=== PATIENT | female | born 1945 | race Caucasian/White ===

== ENCOUNTER → 2016-07-12 | Outpatient (CLI) | payer MEDICARE, OTHER | LOC: GMAL 11:19 | PROVIDERS: ATTEND Family Medicine | DX: R30.0 Dysuria (principal) ==

== ENCOUNTER → 2016-08-16 | Outpatient (CLI) | payer MEDICARE, OTHER | END | disposition home or self-care (01) | LOC: GMAL 16:57 | PROVIDERS: ATTEND Family Medicine | DX: N39.0 Urinary tract infection, site not specified (principal) ==

== ENCOUNTER → 2016-08-19 | Outpatient (CLI) | payer MEDICARE, OTHER ==
--- NOTE | 2016-08-19 09:57 | CT ---
EXAM DESCRIPTION: CT head without contrast. CLINICAL HISTORY: HEADACHE acute onset COMPARISON: None available TECHNIQUE: Multiple axial images of the head without contrast FINDINGS: There is no CT evidence of intracranial hemorrhage, mass effect, or acute cortical infarction. The brain parenchyma and ventricles are normal. There are no abnormal extra-axial fluid collections. Vascular structures are unremarkable. There is no acute calvarial defect. The visualized paranasal sinuses and the mastoids are clear. IMPRESSION: 1. No CT evidence of an acute intracranial abnormality. Electronically signed by: Benito Byrne MD 08/19/2016 9:56 AM NUTRITIONAL CHEMIST
== END | disposition home or self-care (01) ==
LOC: CT 08:54
PROVIDERS: ATTEND Family Medicine
DX: G44.209 Tension-type headache, unspecified, not intractable (principal)

== ENCOUNTER → 2016-08-25 | Outpatient (CLI) | payer MEDICARE, OTHER | END | disposition home or self-care (01) | LOC: GMAL 10:42 | PROVIDERS: ATTEND Family Medicine | DX: E55.9 Vitamin D deficiency, unspecified (principal) ==

== ENCOUNTER → 2016-10-04 | Outpatient (CLI) | payer MEDICARE, OTHER | END | disposition home or self-care (01) | LOC: GMAL 11:41 | PROVIDERS: ATTEND Family Medicine | DX: N39.0 Urinary tract infection, site not specified (principal) ==

== ENCOUNTER 2016-11-03 18:41 | Emergency (ER) | payer MEDICARE, OTHER ==
[2016-11-03] MEDS ORDERED: HYDROmorphone HCL INJ 2 MG/ML VIAL ONE (19:04)
[2016-11-03] MEDS ORDERED: HYDROmorphone HCL INJ 2 MG/ML VIAL IM ONE ×2 (19:06→19:27)
[2016-11-03] MEDS ORDERED: ONDANSETRON ODT 8 MG TAB SL ONE ×2 (19:20→19:26)
[2016-11-03] MEDS ORDERED: ONDANSETRON ODT (ER DISP) 8 MG TAB PO ONE (19:20)
--- NOTE | 2016-11-03 19:20 | ED.PDOC ---
History of Present Illness - General Chief Complaint: Lower Extremity Injury Stated Complaint: Right great toe injury Time Seen by Provider: 11/03/16 19:12 Source: patient, family Exam Limitations: no limitations - History of Present Illness Initial Comments: HER HORSE STEPPED ON HER R GREAT TOE. Occurred: just prior to arrival Method of Injury: direct blow Improving Factors: nothing Worsening Factors: movement Allergies/Adverse Reactions: Allergies Codeine Allergy (Verified 11/29/15 09:50) Penicillins Allergy (Verified 11/29/15 09:50) Sulfa Drugs Allergy (Verified 11/29/15 09:50) Home Medications: Ambulatory Orders ALPRAZolam [Xanax] 0.25 mg PO PRN PRN 11/03/16 Promethazine Tab [Phenergan Tablet] 25 mg PO PRN PRN 11/03/16 Tramadol HCl 50 mg PO AC PRN #20 tab 11/03/16 Review of Systems - Review of Systems Constitutional: States: no symptoms reported EENTM: States: no symptoms reported Respiratory: States: no symptoms reported Cardiology: States: no symptoms reported Gastrointestinal/Abdominal: States: nausea. Denies: vomiting Genitourinary: States: no symptoms reported Musculoskeletal: States: joint pain, joint swelling Skin: States: change in hair/nails Neurological: States: no symptoms reported Endocrine: States: no symptoms reported Hematologic/Lymphatic: States: no symptoms reported All other Systems: Reviewed and Negative Past Medical History (General) - Patient Medical History Hx Seizures: No Hx Stroke: No Hx Dementia: No Hx Asthma: No Hx of COPD: No Hx Cardiac Disorders: No Hx Congestive Heart Failure: No Hx Pacemaker: No Hx Hypertension: Yes Hx Thyroid Disease: No Hx Diabetes: No Hx Gastroesophageal Reflux: No Hx Renal Disease: No Hx Cancer: No Hx of HIV: No Hx Hepatitis C: No Hx MRSA: No Surgical History: Hysterectomy - Vaccination History Hx Tetanus, Diphtheria Vaccination: No Hx Influenza Vaccination: Yes Hx Pneumococcal Vaccination: Yes Immunizations Up to Date: Yes - Social History Hx Tobacco Use: No Hx Alcohol Use: No Hx Substance Use: No Hx Substance Use Treatment: No Hx Depression: No - Activities of Daily Living Hospice Agency (if applicable):: None - Female History Patient is a Female of Child Bearing Age (10 -59 yrs old): No Family Medical History - Family History Mother Living Status: Hx Cardiac Disease: Yes Physical Exam - Physical Exam General Appearance: Alert, Well Hydrated Eyes, Ears, Nose, Throat: PERRL/EOMI, normal ENT inspection Neck: non-tender, full range of motion Cardiovascular/Respiratory: regular rate, rhythm, no M/R/G Gastrointestinal/Abdominal: non-tender, no organomegaly Back: normal inspection, no CVA tenderness Thigh/Hip: normal inspection, non-tender Leg: normal inspection, non-tender Knee: normal inspection, non-tender Ankle: normal inspection, non-tender Foot: bone tenderness, ecchymosis, swelling, other - R GREAT TOE. DRIED BLOOD. NO LAC. THE BLOOD CAME FROM THE CUTICLE OF THE TOENAIL. TOENAIL IS CURRENTLY IN TACT BUT I INFORMED HER IT MAY FALL OFF. Neuro/Tendon: normal sensation, normal motor functions, normal tendon functions Mental Status: alert, oriented x 3 Skin: other - PER FOOT EXAM. Progress - Results/Orders Results/Orders: XRAY NEG FOR FRX. R GREAT TOE CONTUSION. UPDATED TDAP VACCINE. GAVE POST-OP HARD SOLED SHOE. INSTRUCTED MOTRIN 800 MG TID AND RX'D ULTRAM PRN. F/U W/ PCP TO FOLLOW PROGRESS. I INFORMED THE PT HER TOENAIL WILL TURN BLACK AND BLUE AND THE TOENAIL MIGHT FALL OFF. NOTE THAT [employer] WAS DOWN FOR 1 HR DURING HER DISCHARGE, THUS THE DC WAS DONE MANUALLY. Departure - Departure Clinical Impression: Contusion of great toe of right foot, Toe pain, right Disposition: Discharge to Home or Self Care Condition: Fair Departure Forms: ED Discharge - Pt. Copy, Patient Portal Self Enrollment Diet: resume usual diet Activity: walking as tolerated Referrals: Sarmad Shaver III, MD [Primary Care Provider] - 1 Week Prescriptions: Tramadol HCl 50 mg PO AC PRN #20 tab PRN Reason: Pain Home Medications: Ambulatory Orders ALPRAZolam [Xanax] 0.25 mg PO PRN PRN 11/03/16 Promethazine Tab [Phenergan Tablet] 25 mg PO PRN PRN 11/03/16 Tramadol HCl 50 mg PO AC PRN #20 tab 11/03/16
--- NOTE | 2016-11-03 19:21 | RAD ---
EXAM DESCRIPTION: Foot, right 3 Views CLINICAL HISTORY: 71 years Female stepped on by a horse COMPARISON: None. TECHNIQUE: Three views of the right foot. FINDINGS: Bandage material around the great toe which limits evaluation. There were likely nondisplaced fractures through the distal phalanx of the great toe. Repeat image without the bandage material is recommended. No other fractures or areas suspicious for fracture identified. IMPRESSION: [Possible fractures through the distal phalanx of the great toe. Repeat imaging without the bandage material in place is recommended. Electronically signed by: Trae Carrillo MD 11/03/2016 7:21 PM CDT
[2016-11-03] MEDS ORDERED: METOCLOPRAMIDE HCL 5 MG TAB ONE (20:16)
[2016-11-03] MEDS ORDERED: HYDROCOD/APAP 10/325 (ER DISP) # 3 tablets ONE (20:23)
[2016-11-03] MEDS ORDERED: TETANUS,DIPHTHERIA,PERTUSSIS 1 EA SYG IM ONE (20:41)
--- NOTE | 2016-11-03 20:56 | RAD ---
EXAM DESCRIPTION: Toes,Right CLINICAL HISTORY: 71 years, Female, BANDAGE OBSCURED VIEW ON ORIGINAL XRAY. COMPARISON: RIGHT foot radiographs dated earlier today. FINDINGS: Three views of the RIGHT first digit were performed. Localized soft tissue swelling with a rounded focus of soft tissue gas is noted along the dorsal aspect of the RIGHT first digit at the level of the distal phalanx (at the base of the nailbed). A punctate regional radiopaque foreign body is also noted. There is a similar radiopaque foreign body along the plantar surface of the RIGHT first digit at the level of the tip of the distal phalanx. This radiopaque foreign body is superficial. There is a short well-corticated lucency passing through the plantar and dorsal aspects of the RIGHT first distal phalanx but this does not have the appearance of an acute fracture. Bony alignment is maintained. There is some joint space narrowing and bony proliferation at the RIGHT first MTP joint. IMPRESSION: RIGHT first digit soft tissue injury with two punctate radiopaque foreign bodies along the plantar and dorsal aspects of the RIGHT first digit. There is also a small focus of gas consistent with laceration at the base of the nailbed where one of these foreign bodies is located. No RIGHT first digit fracture. Electronically signed by: Nehal Davenport MD 11/03/2016 7:57 PM CDT
[2016-11-03 21:26] VITALS: BP 114/74; TEMP 98.2; O2SAT 95
== END 2016-11-03 21:00 | disposition home or self-care (01) ==
LOC: ER 18:41
DX: S90.111A Contusion of right great toe without damage to nail, initial encounter (principal); I10 Essential (primary) hypertension; Z88.6 Allergy status to analgesic agent; Z88.0 Allergy status to penicillin; Z88.2 Allergy status to sulfonamides; Z79.899 Other long term (current) drug therapy; W55.19XA Other contact with horse, initial encounter; Y92.9 Unspecified place or not applicable
CPT/HCPCS: 73630; 73660; J1170

== ENCOUNTER → 2016-12-12 | Outpatient (CLI) | payer MEDICARE, OTHER | END | disposition home or self-care (01) | LOC: LAB.O 14:12 | PROVIDERS: ATTEND Family Medicine | DX: M79.1 Myalgia (principal); R53.82 Chronic fatigue, unspecified; E34.0 Carcinoid syndrome ==

== ENCOUNTER 2017-01-20 05:46 | Day surgery (SDC) | payer MEDICARE, OTHER ==
[2017-01-20] MEDS ORDERED: LACTATED RINGERS 1,000 ML ONE (06:29)
[2017-01-20] MEDS ORDERED: PROPOFOL 200 MG/20 ML VIAL IV ONE (07:00)
[2017-01-20] MEDS ORDERED: BUPIVACAINE 0.25% W/EPI 50 ML VIAL INJ ONE (08:27)
[2017-01-20] MEDS ORDERED: LIDOCAINE 1% 50 ML VIAL INJ ONE (08:27)
[2017-01-20] MEDS ORDERED: methylPREDNISolone ACETATE 80 MG/ML VIAL ONE (08:27)
[2017-01-20 10:15] VITALS: BP 153/82; TEMP 96.3; O2SAT 99
--- NOTE | 2017-01-23 09:22 | OP ---
DATE OF PROCEDURE: 01/20/17 PREOPERATIVE DIAGNOSIS: 1. Hip pain. POSTOPERATIVE DIAGNOSIS: 1. Hip pain. PROCEDURE: 1. Injection of joint under anesthesia. SURGEON: Natanael Granado MD. ANVIL WORKER: Steve Ramsey CST, SA-C. ANESTHESIA: Conscious sedation. COMPLICATIONS: None. FINDINGS: No acute abnormal findings. INDICATION: The patient has a long history of hip pain that has been of indeterminate etiology. She has had epidurals and other types of injections, but has never had a direct hip joint injection. As such, she has requested to undergo that procedure. After discussing the risks, benefits and alternatives to that, the patient has given informed consent for that. PROCEDURE: The patient was brought to the Operating Room and placed in supine position. Local sedation was administered. The hip was flexed and slightly abducted. The groin was sterilely prepped. Under fluoroscopic imaging, a needle was passed into the joint. Once confirmation of placement into the joint had been performed, the joint was injected with a mixture of lidocaine and Depo-Medrol. The needle was withdrawn. Pressure was held on the injection site. A sterile band-aid was placed. The patient was then taken back to the Day Surgery Unit. POSTOPERATIVE INSTRUCTIONS: The patient will be weight-bearing as tolerated. The patient will followup with us in about ten days. #[id number] [facility]
== END 2017-01-20 09:45 | disposition home or self-care (01) ==
LOC: AMB 05:46
PROVIDERS: ATTEND Orthopaedic Surgery
DX: M25.552 Pain in left hip (principal); M16.12 Unilateral primary osteoarthritis, left hip; I10 Essential (primary) hypertension; F41.9 Anxiety disorder, unspecified; Z88.5 Allergy status to narcotic agent; Z88.0 Allergy status to penicillin; Z88.2 Allergy status to sulfonamides; Z88.8 Allergy status to other drugs, medicaments and biological substances; Z79.82 Long term (current) use of aspirin; Z79.899 Other long term (current) drug therapy
CPT/HCPCS: 01200; 20610; 76000; J1030; J3490; J7120

== ENCOUNTER → 2017-03-14 | Outpatient (CLI) | payer MEDICARE, OTHER | END | disposition home or self-care (01) | LOC: GMAL 10:54 | PROVIDERS: ATTEND Family Medicine | DX: D51.3 Other dietary vitamin B12 deficiency anemia (principal); R53.82 Chronic fatigue, unspecified; E55.9 Vitamin D deficiency, unspecified ==

== ENCOUNTER → 2017-03-29 | Outpatient (CLI) | payer MEDICARE, OTHER | END | disposition home or self-care (01) | LOC: GMAL 16:38 | PROVIDERS: ATTEND Family Medicine | DX: N39.0 Urinary tract infection, site not specified (principal) ==

== ENCOUNTER → 2017-08-17 | Outpatient (CLI) | payer MEDICARE, OTHER | LOC: GMAL 16:49 | PROVIDERS: ATTEND Family Medicine | DX: N39.0 Urinary tract infection, site not specified (principal) ==

== ENCOUNTER → 2017-09-20 | Outpatient (CLI) | payer MEDICARE, OTHER ==
--- NOTE | 2017-09-21 09:04 | US ---
THYROID ULTRASOUND CLINICAL INFORMATION: Nodular goiter TECHNIQUE: A scaling color Doppler imaging COMPARISON: None FINDINGS: Thyromegaly with bilateral enlargement is present with the right lobe measuring 5.2 x 2.2 x 1.9 cm and the left lobe 5.9 x 1.9 x 1.9 cm. The isthmus is 3 mm in thickness. RIGHT: In the mid right thyroid posteriorly there is a hypoechoic wider than tall lobulated solid nodule 1.2 x 0.8 x 0.7 cm. This represents a TR four lesion and one year follow-up examination recommended. A wider than tall hypoechoic 5 x 5 x 3 mm nodule at the junction of the isthmus and right lobe represents a TR four lesion and no further follow-up recommended. LEFT: A dominant heterogeneous solid oval 1.9 x 1.4 x 0.1 cm nodule in the mid thyroid with at least coarse internal calcifications represents a TR four lesion. Fine-needle aspiration of this dominant nodule recommended. Posterior and lateral to this nodule is an echogenic solid wider than tall 1.5 x 1.3 x 1.2 cm nodule. This represents a TR three lesion and one year sonographic follow-up for stability recommended. IMPRESSION: 1. Heterogeneous solid dominant 1.9 cm nodule lower pole of the left thyroid more anteriorly and medially with coarse internal echoes. Fine-needle aspiration of this nodule recommended. 2. Thyromegaly with multiple additional nodules including a 1.2 cm solid nodule in the mid right lobe and a 1.5 cm solid nodule in the lower left lobe laterally and posteriorly. One year sonographic follow-up of these nodules recommended. ACR TI-RADS recommendations: TR5 (>/=7 points) - FNA if >/=1 cm, follow-up if 0.5 - 0.9 cm every year for 5 years TR4 (4-6 points) - FNA if >/=1.5 cm, follow-up if 1 - 1.4 cm in 1, 2, 3 and 5 years TR3 (3 points) - FNA if >/=2.5 cm, follow -up if 1.5 - 2.4 cm in 1, 3 and 5 years TR2 (2 points) and TR1 (0 points) - No FNA or follow-up * ACR TI-RADS recommends that no more than two nodules with the highest ACR TI-RADS total point should be biopsied and no more than four nodules should be followed. Electronically signed by: Montana Capps MD 09/21/2017 9:03 AM CDT
== END | disposition home or self-care (01) ==
LOC: US 14:45
PROVIDERS: ATTEND Internal Medicine
DX: E04.2 Nontoxic multinodular goiter (principal)

== ENCOUNTER → 2018-03-01 | Outpatient (CLI) | payer MEDICARE, OTHER ==
--- NOTE | 2018-03-01 16:06 | MRI ---
Study: MRI Pelvis. Indication: LEFT HIP PAIN Technique: Multiplanar, multi sequence MRI of the pelvis obtained without intravenous contrast. Comparison: None. Findings: Full-thickness tearing at the base of the anterior superior left hip labrum noted. No acute fracture or osteonecrosis. Grade 3 chondral thinning throughout the majority of the left hip joint with subtle areas of grade 4 chondral loss superiorly and posteriorly. No cortical remodeling or subchondral marrow change. Physiologic volume left hip joint fluid. Tiny joint line osteophytes. Mild pubic symphysis osteoarthritis. At least mild right hip osteoarthritis. Colonic diverticulosis. Tendinosis bilateral gluteus minimus/medius tendon insertions with mild bilateral greater trochanter bursal edema. Tendinosis bilateral hamstring tendon origins, left greater than right. No acute pelvic tendon tear identified. 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 No acute fracture or osteonecrosis. Additional findings as above. Electronically signed by: Alejandro Lewis MD 03/01/2018 4:05 PM CDT
== END ==
LOC: MRI 13:00
PROVIDERS: ATTEND Orthopaedic Surgery
DX: M16.12 Unilateral primary osteoarthritis, left hip (principal); M25.552 Pain in left hip

== ENCOUNTER → 2018-03-22 | Outpatient (CLI) | payer MEDICARE, OTHER | LOC: GMAL 16:58 | PROVIDERS: ATTEND Family Medicine | DX: N30.00 Acute cystitis without hematuria (principal) ==

== ENCOUNTER 2018-05-06 16:15 | Emergency (ER) | payer MEDICARE, OTHER ==
[2018-05-06] MEDS ORDERED: MORPHINE SULFATE INJ 10 MG/ML VIAL IV ONE (16:20)
[2018-05-06] MEDS ORDERED: KETOROLAC TROMETHAMINE INJ 30 MG/ML VIAL IM ONE (16:20)
[2018-05-06] MEDS ORDERED: SODIUM CHLORIDE 0.9% 1000ML 1,000 ML IVS ONE (16:26)
[2018-05-06] MEDS ORDERED: PROMETHAZINE HCL INJ 25 MG in SODIUM CHLORIDE 0.9% 50ML 50 ML IVPB ONE (16:36)
[2018-05-06 16:37] VITALS: TEMP 96.8
[2018-05-06] MEDS ORDERED: KETOROLAC TROMETHAMINE INJ 30 MG/ML VIAL IV ONE ×2 (16:37→17:09)
[2018-05-06] MEDS ORDERED: PROMETHAZINE HCL INJ 25 MG/ML VIAL ONE (16:38)
[2018-05-06] MEDS ORDERED: SODIUM CHLORIDE 0.9% 50ML 50 ML ONE (16:38)
--- NOTE | 2018-05-06 16:57 | RAD ---
EXAM DESCRIPTION: KUB, x-ray one view CLINICAL HISTORY: severe acute right flank pain COMPARISON: None. FINDINGS: Single supine view of the abdomen was submitted. There is no evidence of bowel obstruction. There is no acute osseous process visualized. Intervertebral disc space narrowing and osteophytic formation noted at L1-L2 and L2/L3. Multiple calcifications at the right upper quadrant could be related to chondral calcifications. If gallstones are suspected correlation with a sonogram recommended. IMPRESSION: No evidence of bowel obstruction. Multiple calcifications at the right upper quadrant could be related to chondral calcifications. If gallstones are suspected correlation with a sonogram recommended. Electronically signed by: John Chen MD 05/06/2018 4:55 PM PROPERTY ANALYST
[2018-05-06] MEDS ORDERED: TAMSULOSIN 0.4 MG CAP PO ONE (17:10)
[2018-05-06] MEDS ORDERED: traMADol HCL 50 MG TAB PO ONE (17:10)
--- NOTE | 2018-05-06 18:04 | CT ---
EXAM DESCRIPTION: Abdoment/Pelvis w/o Contrast CLINICAL HISTORY: suspected right sided kidney stone COMPARISON: None Available TECHNIQUE: Contiguous axial images of the abdomen and pelvis were obtained followed by reconstruction images. This exam was performed according to our departmental dose-optimization program, which includes automated exposure control, adjustment of the mA and/or kV according to patient size and/or use of iterative reconstruction technique. FINDINGS: The right kidney demonstrates hydronephrosis due to a 2 mm stone at the ureterovesical junction. There are two right renal cysts measuring 1.8 cm and 3 cm. There is an umbilical hernia with fatty component only. There are diverticuli without CT evidence of acute diverticulitis. Linear opacities within the lungs may represent scar versus subsegmental atelectasis. There is a hiatal hernia. The liver is of decreased attenuation compatible with fatty infiltration. The liver, spleen, pancreas and kidneys are otherwise within normal limits. The gallbladder is unremarkable by CT criteria. Adrenal glands are within normal limits. Aorta is of normal caliber and tapering. There is no free fluid in the abdomen or pelvis. There is no bowel obstruction. There is no stranding of the mesenteric fat to suggest an inflammatory response. The appendix is within normal limits. There is no pericecal inflammation. IMPRESSION: Right-sided hydronephrosis due to a 2 mm stone at the ureterovesical junction. Electronically signed by: John Chen MD 05/06/2018 6:03 PM ETYMOLOGY TEACHER
[2018-05-06 18:11] VITALS: BP 124/87; O2SAT 97
--- NOTE | 2018-05-06 18:23 | ED.PDOC ---
History of Present Illness - General Chief Complaint: Abdominal Pain Stated Complaint: R flank pain Time Seen by Provider: 05/06/18 16:16 Source: patient Exam Limitations: no limitations - History of Present Illness Initial Comments: the patient is a 72-year-old female presents secondary to acute onset severe right flank pain. The patient has urinated several times and feels like she needs to urinate more but cannot. Pain is a 10 out of 10. Mild nausea. No vomiting. No diarrhea. No symptoms prior. No history of any kidney stones. Patient cannot remain still. Vital signs within normal limits. Patient is diaphoretic. Timing/Duration: unsure Severity: moderate Improving Factors: nothing Worsening Factors: movement Associated Symptoms: denies symptoms Allergies/Adverse Reactions: Allergies Codeine Allergy (Verified 05/06/18 16:30) Anaphylaxis Penicillins Allergy (Verified 05/06/18 16:30) Other Causes her to pass out Sulfa Drugs Allergy (Verified 05/06/18 16:30) Hives Home Medications: Ambulatory Orders ALPRAZolam [Xanax] 1 mg PO PRN PRN 11/03/16 Promethazine Tab [Phenergan Tablet] 25 mg PO PRN PRN 11/03/16 Tramadol HCl 50 mg PO AC PRN #20 tab 11/03/16 Aspirin [Aspirin Adult Low Dose] 81 mg PO DAILY 01/20/17 Cetirizine HCl [ZyrTEC] 10 mg PO BEDTIME 01/20/17 Methocarbamol [Robaxin] 750 mg PO PRN PRN 01/20/17 Multiple Vitamins W/ Minerals [Multivitamin Adults] 1 tab PO DAILY@07 diphenhydrAMINE HCL [Benadryl] 25 mg PO DAILY@0700 01/20/17 Tamsulosin HCl [Flomax] 0.4 mg PO DAILY #10 cap 05/06/18 Review of Systems - Review of Systems Constitutional: States: no symptoms reported EENTM: States: no symptoms reported Respiratory: States: no symptoms reported Cardiology: States: no symptoms reported Gastrointestinal/Abdominal: States: no symptoms reported Genitourinary: States: see HPI Musculoskeletal: States: back pain Skin: States: no symptoms reported Neurological: States: no symptoms reported, anxiety Endocrine: States: no symptoms reported All other Systems: No Change from Baseline Past Medical History (General) - Patient Medical History Hx Seizures: No Hx Stroke: No Hx Dementia: No Hx Asthma: No Hx of COPD: No Hx Cardiac Disorders: No Hx Congestive Heart Failure: No Hx Pacemaker: No Hx Hypertension: Yes Hx Thyroid Disease: No Hx Diabetes: No Hx Gastroesophageal Reflux: No Hx Renal Disease: No Hx Cancer: No Hx of HIV: No Hx Hepatitis C: No Hx MRSA: No - Vaccination History Hx Tetanus, Diphtheria Vaccination: No Hx Influenza Vaccination: Yes - 2018 Hx Pneumococcal Vaccination: No - Social History Hx Tobacco Use: No Hx Alcohol Use: No Hx Substance Use: No Hx Substance Use Treatment: No Hx Depression: No Family Medical History - Family History Mother Living Status: Hx Cardiac Disease: Yes Physical Exam - Physical Exam General Appearance: Alert, Obvious distress Eye Exam: bilateral normal Ears, Nose, Throat: hearing grossly normal, normal ENT inspection Neck: full range of motion, supple Respiratory: lungs clear, normal breath sounds, no respiratory distress, no accessory muscle use Cardiovascular/Chest: normal peripheral pulses, no edema, tachycardia Peripheral Pulses: radial,right: 2+, radial,left: 2+, dorsalis pedis,right: 2+, dorsalis pedis,left: 2+ Gastrointestinal/Abdominal: non tender, soft Rectal Exam: deferred Back Exam: CVA tenderness (R) Extremity: non-tender, normal inspection, no pedal edema, normal capillary refill Neurologic: state's attorney II-XII nml as tested, alert, normal mood/affect, oriented x 3 Skin Exam: normal color Comments: Vital Signs - 24 hr 05/06/18 05/06/18 05/06/18 16:15 17:21 18:09 Temperature 96.8 F L Pulse Rate [ 108 H 80 77 Left Radial] Respiratory 22 20 18 Rate Blood Pressure 153/100 163/97 124/87 [Left Arm] O2 Sat by Pulse 97 100 97 Oximetry Progress - Progress Progress: 05/06/18 18:23 patient is 72-year-old female presenting to emergency room secondary to what appears to be pain from ureterolithiasis. The patient received a liter of IV fluids as well as some pain medications. She has also received her first dose of Flomax. Pain is significantly improved. She can take Aleve twice daily for the next few days as well as some of her tramadol if needed. She does need to increase her fluid intake. ER warnings were given. - Results/Orders Results/Orders: Laboratory Tests 05/06/18 05/06/18 05/06/18 16:37 16:37 16:37 WBC 10.5 RBC 4.68 Hgb 14.4 Hct 43.3 MCV 92.4 MCH 30.8 MCHC 33.3 RDW 13.0 Plt Count 343 MPV 8.3 Absolute Neuts (auto) 4.30 Absolute Lymphs (auto) 5.00 H Absolute Monos (auto) 0.90 H Absolute Eos (auto) 0.20 Absolute Basos (auto) 0.10 Neutrophils % 40.7 L Lymphocytes % 48.0 Monocytes % 8.6 Eosinophils % 1.9 Basophils % 0.8 D-Dimer, Quantitative 0.26 Sodium Potassium Chloride Carbon Dioxide Anion Gap BUN Creatinine BUN/Creatinine Ratio Random Glucose Serum Osmolality Calcium Total Bilirubin AST ALT Alkaline Phosphatase Creatine Kinase 53 CK-MB (CK-2) 0.8 CK-MB (CK-2) % Not Reportable Troponin I < 0.02 Serum Total Protein Albumin Globulin Albumin/Globulin Ratio Urine Color Urine Appearance Urine pH Ur Specific Mcclellan Urine Protein Urine Glucose (UA) Urine Ketones Urine Blood Urine Nitrite Urine Bilirubin Urine Urobilinogen Ur Leukocyte Esterase Urine RBC Urine WBC Ur Epithelial Cells Urine Bacteria 05/06/18 05/06/18 16:37 17:56 WBC RBC Hgb Hct MCV MCH MCHC RDW Plt Count MPV Absolute Neuts (auto) Absolute Lymphs (auto) Absolute Monos (auto) Absolute Eos (auto) Absolute Basos (auto) Neutrophils % Lymphocytes % Monocytes % Eosinophils % Basophils % D-Dimer, Quantitative Sodium 139 Potassium 3.6 Chloride 105 Carbon Dioxide 25 Anion Gap 12.6 BUN 14 Creatinine 0.74 BUN/Creatinine Ratio 18.9 Random Glucose 148 H Serum Osmolality 280.8 Calcium 9.4 Total Bilirubin 0.3 AST 24 ALT 28 Alkaline Phosphatase 92 Creatine Kinase CK-MB (CK-2) CK-MB (CK-2) % Troponin I Serum Total Protein 7.5 Albumin 4.4 Globulin 3.1 Albumin/Globulin Ratio 1.4 Urine Color Yellow Urine Appearance Clear Urine pH 6.5 Ur Specific Mcclellan 1.020 Urine Protein Negative Urine Glucose (UA) Negative Urine Ketones Negative Urine Blood Trace-intact H Urine Nitrite Negative Urine Bilirubin Negative Urine Urobilinogen 0.2 Ur Leukocyte Esterase Negative Urine RBC 0 Urine WBC 0-1 Ur Epithelial Cells 5-[address] of abdomen and pelvis shows right-sided renal cysts. She also has 2 mm stone at the right ureteropelvic junction with mild hydronephrosis proximally. Departure - Departure Clinical Impression: Kidney stone on right side Disposition: Discharge to Home or Self Care Condition: Fair Departure Forms: ED Discharge - Pt. Copy, Patient Portal Self Enrollment Instructions: Kidney Stones (DC) Diet: regular diet Activity: increase activity as tolerated Referrals: Sarmad Shaver III, MD [Primary Care Provider] - 1-2 Weeks Prescriptions: Tamsulosin HCl [Flomax] 0.4 mg PO DAILY #10 cap Home Medications: Ambulatory Orders ALPRAZolam [Xanax] 1 mg PO PRN PRN 11/03/16 Promethazine Tab [Phenergan Tablet] 25 mg PO PRN PRN 11/03/16 Tramadol HCl 50 mg PO AC PRN #20 tab 11/03/16 Aspirin [Aspirin Adult Low Dose] 81 mg PO DAILY 01/20/17 Cetirizine HCl [ZyrTEC] 10 mg PO BEDTIME 01/20/17 Methocarbamol [Robaxin] 750 mg PO PRN PRN 01/20/17 Multiple Vitamins W/ Minerals [Multivitamin Adults] 1 tab PO DAILY@0700 diphenhydrAMINE HCL [Benadryl] 25 mg PO DAILY@0700 01/20/17 Tamsulosin HCl [Flomax] 0.4 mg PO DAILY #10 cap 05/06/18 Additional Instructions: patient is 72-year-old female presenting to emergency room secondary to what appears to be pain from ureterolithiasis, a 2 mm stone at the right ureteropelvic junction. the stone is likely to pass without further intervention. The patient received a liter of IV fluids as well as some pain medications. She has also received her first dose of Flomax. Pain is significantly improved. She can take Aleve twice daily for the next few days as well as some of her tramadol if needed. She does need to increase her fluid intake. ER warnings were given.
== END 2018-05-06 18:52 | disposition home or self-care (01) ==
LOC: ER 16:15
DX: N13.2 Hydronephrosis with renal and ureteral calculous obstruction (principal); N28.1 Cyst of kidney, acquired; I10 Essential (primary) hypertension; Z79.82 Long term (current) use of aspirin; Z79.899 Other long term (current) drug therapy; Z88.5 Allergy status to narcotic agent; Z88.0 Allergy status to penicillin; Z88.2 Allergy status to sulfonamides
CPT/HCPCS: 36415; 74018; 74176; 80053; 81001; 82550; 82553; 84484; 85025; 85379; A4216; J1885; J2060; J2550; J7030

== ENCOUNTER → 2018-09-14 | Outpatient (CLI) | payer MEDICARE, OTHER | LOC: GMAL 11:28 | PROVIDERS: ATTEND Family Medicine | DX: D51.3 Other dietary vitamin B12 deficiency anemia (principal); R53.82 Chronic fatigue, unspecified; E55.9 Vitamin D deficiency, unspecified ==

== ENCOUNTER → 2018-12-04 | Outpatient (CLI) | payer MEDICARE, OTHER | LOC: LAB.O 10:48 | PROVIDERS: ATTEND Family Medicine | DX: R53.83 Other fatigue (principal); R94.5 Abnormal results of liver function studies ==

== ENCOUNTER → 2018-12-17 | Outpatient (CLI) | payer MEDICARE, OTHER ==
--- NOTE | 2018-12-17 15:17 | MRI ---
MRI left hip without contrast INDICATION: Unilateral primary osteoarthritis hip pain. TECHNIQUE: Noncontrast MR imaging left hip standard protocol FINDINGS: Mild osteoarthrosis of the hips. No osteonecrosis or fracture. Minimal left greater trochanteric bursitis and gluteal tendinopathy. Degenerative disc disease with disc height loss and desiccation L5-S1. No hamstring rupture or retraction Mild interstitial tendinosis fraying and partial tear left gluteus minimus tendon. 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 The labral changes are expected for age. Probable exophytic right renal mass or cysts recommend ultrasound. IMPRESSION: Degenerative labrum left hip with adjacent chondrosis and mild osteoarthrosis Mild greater trochanteric bursitis with gluteal tendinopathy Diffuse degenerative labral tear with volume loss Mild left greater than right greater trochanteric bursal edema. Degenerative disc disease L5-S1 Incidentally noted exophytic mass mid right kidney on the manager [employer] marketing images recommend ultrasound to exclude renal mass. Electronically signed by: Morgan Hartman MD 12/17/2018 3:15 PM CDT
== END ==
LOC: MRI 13:00
PROVIDERS: ATTEND Orthopaedic Surgery
DX: M16.12 Unilateral primary osteoarthritis, left hip (principal); M94.252 Chondromalacia, left hip; M71.85 Other specified bursopathies, hip; M51.37 Other intervertebral disc degeneration, lumbosacral region; M24.852 Other specific joint derangements of left hip, not elsewhere classified; N28.89 Other specified disorders of kidney and ureter

== ENCOUNTER → 2019-03-07 | Outpatient (CLI) | payer MEDICARE, OTHER ==
--- NOTE | 2019-03-08 13:59 | RAD ---
EXAM DESCRIPTION: Foot,Right 3 Views: CR/DR/XR CLINICAL HISTORY: 73 years Female PAIN IN RIGHT FOOT. Stubbed second toe 02/25/2019. COMPARISON: Right great toe and second toe october 2016 TECHNIQUE: 3 VIEWS AP. Lateral. Oblique. Right foot. Patient unable to remove, toe ring due to soft tissue swelling. FINDINGS: A metal ring around the mid phalanx of the right second toe limits evaluation. The visualized bone shows no fracture. Minimal arthrosis in the DIP joint. Overall bone density is decreased. Mild hallux valgus and mild arthrosis in the same joint. Small bone density and calcification in the vicinity of the base of the second proximal metatarsal not well seen on the prior study, plantar surface on the lateral view. IMPRESSION: Limited evaluation of the right second toe due to toe ring. No acute fracture or joint margin abnormality. Minimal arthrosis DIP joint. Mild hallux valgus with arthrosis great toe. Skin contamination on the plantar surface. Electronically signed by: Steve Martinez MD 03/08/2019 1:57 PM CDT
== END ==
LOC: RAD 14:00
PROVIDERS: ATTEND Orthopaedic Surgery
DX: M20.11 Hallux valgus (acquired), right foot (principal); M19.071 Primary osteoarthritis, right ankle and foot

== ENCOUNTER → 2019-04-01 | Outpatient (CLI) | payer MEDICARE, OTHER | LOC: GMAL 10:51 | PROVIDERS: ATTEND Family Medicine | DX: E34.9 Endocrine disorder, unspecified (principal); E78.49 Other hyperlipidemia; E55.9 Vitamin D deficiency, unspecified; I10 Essential (primary) hypertension ==

== ENCOUNTER → 2019-06-07 | Outpatient (CLI) | payer MEDICARE, OTHER | LOC: GMAL 10:34 | PROVIDERS: ATTEND Family Medicine | DX: E34.9 Endocrine disorder, unspecified (principal) ==

== ENCOUNTER → 2019-06-21 | Outpatient (CLI) | payer MEDICARE, OTHER ==
--- NOTE | 2019-06-21 13:37 | RAD ---
EXAM DESCRIPTION: Lumbar Spine 5 Views CLINICAL HISTORY: RADICULOPATHY COMPARISON: None Available. TECHNIQUE: Five views lumbar spine including flexion and extension views FINDINGS: Initial views demonstrate normal alignment of the spine with degenerative disc narrowing at L5-S1 as well as the upper lumbar spine at L1-2 and L2-3 with anterior spurring. Facet sclerosis at L5-S1 noted. Flexion and extension views demonstrate preserved normal alignment without abnormal subluxation. No fractures or compression deformities noted. IMPRESSION: Degenerative lumbar spine with facet sclerosis L5-S1 and degenerative disc disease and endplate irregularity L1-2, L2-3, and L5-S1. Normal flexion and extension views of the lumbar spine. Electronically signed by: Montana Capps MD 06/21/2019 1:35 PM [facility]
--- NOTE | 2019-06-21 13:47 | MRI ---
EXAM DESCRIPTION: Lumbar Spine w/o Contrast CLINICAL HISTORY: RADICULOPATHY COMPARISON: None Available. TECHNIQUE: MRI of the lumbar spine is performed according to our usual protocol with axial and sagittal multi sequence imaging. FINDINGS: Normal alignment of the lumbar spine with multilevel disc space narrowing and disc desiccation is present with preserved vertebral height adequate diameter thecal sac and spinal canal throughout. The conus is positioned at the upper L1 level. Slight thickening of the filum terminale at the upper L2 level with an approximate 3 mm diameter by 3 cm long lipoma of the filum terminale noted to within the thecal sac. The appearance is benign and no further workup recommended. A large posterior right-sided fat suppressible L1 vertebral hemangioma is present with a small posterior 1.5 cm fat suppressible hemangioma at the T11 level. Retroperitoneal and paraspinous structures appear normal. Mild endplate edematous changes are present at the degenerative narrowed L1-2 level anteriorly. Disc desiccation with normal disc contour at T11-12 and T12-L1 noted. L1-2: Disc space narrowing and anterior plating with minimal annular prominence and mild facet arthropathy with adequate canal lateral recesses and neural foramina. L2-3: Disc desiccation and mild disc space narrowing with symmetric annular bulge and mild facet arthropathy. Adequate central canal and lateral recesses and neural foramina. L3-4: Disc desiccation with normal disc contour and preserved disc height with mild facet arthropathy. Adequate canal and neural foramina. L4-5: Disc desiccation with preserved disc height with mild annular prominence with moderate left greater than right facet arthropathy and ligamentum flavum hypertrophy with adequate canal and lateral recesses and neural foramina. L5-S1: Disc desiccation with mild disc space narrowing and annular prominence with modest estimated 2-3 mm disc osteophyte complex in the midline extending symmetrically to each side consistent with an area of disc protrusion and focal annular prominence. Mild facet arthropathy. Adequate central canal and neural foramina. IMPRESSION: 1. 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 No further workup recommended. 2. Large posterior and left-sided L1 fat suppressible vertebral hemangioma almost completely replacing the vertebral body with smaller 1.5 cm fat suppressible hemangioma at the T11 level posteriorly. 3. Large adequate spinal canal throughout with adequate neural foramina and central canal. No lateralizing herniation seen. 4. Mild slightly broad-based central disc protrusion and disc degeneration L5-S1 indenting the anterior thecal sac but without significant neural compression. Minimal fissuring of the posterior annulus noted without extruded disc fragment 5. Mild symmetric annular bulge L4-5 and L2-3 without neural compression or stenosis. Electronically signed by: Montana Capps MD 06/21/2019 1:45 PM [facility]
== END ==
LOC: MRI 12:51
PROVIDERS: ATTEND Pain Medicine Interventional Pain Medicine
DX: M51.16 Intervertebral disc disorders with radiculopathy, lumbar region (principal); M51.17 Intervertebral disc disorders with radiculopathy, lumbosacral region; D17.9 Benign lipomatous neoplasm, unspecified; D18.09 Hemangioma of other sites

== ENCOUNTER → 2019-10-22 | Outpatient (CLI) | payer MEDICARE, OTHER ==
--- NOTE | 2019-10-23 20:04 | MAM ---
EXAM DESCRIPTION: 3D Screening BILATERAL : Digital Mammography. CLINICAL HISTORY: 74 years Female ANNUAL SCREENING . No complaints. No personal history of breast cancer. Remote family history of breast cancer. Bilateral breast augmentation. Menarche age 15. No childbirth. Menopause age 51. Currently on HRT. Lifetime risk of developing breast cancer (Tyrer-Cuzick model)(%): 5.1. COMPARISON: Baseline study at this facility. No prior reports available. TECHNIQUE: Bilateral CC and MLO projection full-field images, with [employer] Implant Displacement digital tomosynthesis mammographic technique. Bilateral 2-D digital full-field images, MLO and CC projections, non-displaced. Bilateral digital 2-D full-field MLO images. Implant displaced. CAD available for 2-D images. FINDINGS: The breast parenchymal density pattern is: Heterogeneously dense breast tissue, which may obscure small masses. No skin thickening or nipple retraction. Bilateral implants are subglandular saline. Capsules are involuting bilaterally more on the right and partial calcification of the right capsule. Increased focal asymmetry right retroareolar breast. Axillary lymph nodes. Solitary microcalcifications.. No new focal, stellate mass or density, focal asymmetry , and no suspicious microcalcifications left breast. IMPRESSION: BI-RADS CATEGORY: 0 - INCOMPLETE- Need additional imaging evaluation. RECOMMENDATIONS: FOLLOW-UP: Recall for additional imaging: Directed right breast ultrasound of the region of interest.. Written communication concerning the IMPRESSION and Follow-up, will be mailed to the patient and referring health care provider. Electronically signed by: Steve Martinez MD 10/23/2019 8:02 PM CDT
== END ==
LOC: MAMMO 09:30
PROVIDERS: ATTEND Family Medicine
DX: Z12.31 Encounter for screening mammogram for malignant neoplasm of breast (principal)

== ENCOUNTER → 2019-10-23 | Outpatient (CLI) | payer MEDICARE, OTHER ==
--- NOTE | 2019-10-23 15:58 | CT ---
EXAM DESCRIPTION: Pelvis: Computed Tomography. CLINICAL HISTORY: LEFT INGUINAL PAIN COMPARISON: CT scan abdomen and pelvis April 2018 TECHNIQUE: Spiral-axial scans 2.5 x 2.5 mm intervals through the pelvis: no water soluble barium contrast; no IV contrast. Coronal and sagittal 2.0 mm reconstructions. Total Exam DLP: 614 mGy-cm. This exam was performed according to our departmental CT dose-optimization program which includes automated exposure control, adjustment of the mA and/or kV according to patient size and/or use of iterative reconstruction technique; to reduce radiation dose to as low as reasonably achievable (ALARA). FINDINGS: Inguinal Canals: Bilateral small fatty inguinal hernias small inguinal nodes bilaterally. No fatty inflammatory changes or free fluid or bowel or soft tissue mass in the inguinal canals. Pelvic Wall/Back Soft Tissues: Minimal diastases at the umbilicus not containing bowel or other organs. Pelvic Organs: Minimal distention of the urinary bladder with no radiodense stones or wall thickening. No free fluid. Vaginal cuff visualized. No adnexal mass. Mesentery: No free air or free fluid or inflammatory changes. Small Bowel: Included segments normal caliber. Terminal Ileum: Unremarkable. Cecum: Normal caliber containing minimal fecal matter. Normal caliber of the appendix containing gas. Colon: Included segments with fecal matter. Descending colon and sigmoid with diverticula no sign of complications. Redundant sigmoid colon. Spine and Bony Pelvis: Minimal arthrosis bilateral hip joints with acetabular hypertrophy and femoral head over-coverage. Coccyx angulated approximately 90 degrees anterior to the sacrum. L5-S1 spondylosis and disc space loss. Subchondral cysts in the left femoral head. IMPRESSION: 1. Bilateral fatty inguinal hernias not containing bowel, fluid, or inflammatory changes. No mass. Small lymph nodes bilaterally. No abnormal umbilical hernia. 2. Diverticulosis but no complications. Coccyx angle 90 degrees anteriorly on the sacrum, no change from the prior study. No impingement of the rectum. Chronic spondylosis disc space narrowing L5-S1. Bilateral femoral head over coverage by acetabular spurs to be associated with femoral acetabular impingement. Electronically signed by: Steve Martinez MD 10/23/2019 3:57 PM CDT
== END ==
LOC: CT 09:30
PROVIDERS: ATTEND Surgery
DX: K40.20 Bilateral inguinal hernia, without obstruction or gangrene, not specified as recurrent (principal); K57.90 Diverticulosis of intestine, part unspecified, without perforation or abscess without bleeding; M76.891 Other specified enthesopathies of right lower limb, excluding foot; M76.892 Other specified enthesopathies of left lower limb, excluding foot; M47.897 Other spondylosis, lumbosacral region

== ENCOUNTER → 2019-10-25 | Outpatient (CLI) | payer MEDICARE, OTHER | LOC: YCFC.O 12:53 | PROVIDERS: ATTEND Family Medicine | DX: R30.9 Painful micturition, unspecified (principal) ==

== ENCOUNTER → 2019-11-04 | Outpatient (CLI) | payer MEDICARE, OTHER ==
--- NOTE | 2019-11-04 16:49 | US ---
EXAM DESCRIPTION: Breast,Right: Ultrasound CLINICAL HISTORY: 74 yearsFemaleABNORMAL MAMMOGRAPHY . Focal asymmetry retroareolar right breast. COMPARISON: Bilateral screening digital breast tomosynthesis examination October 21. Comparison to prior outside digital mammography October 30. TECHNIQUE: Transcutaneous scanning of the right breast utilizing mei-scale and Doppler modes. Scanning performed by the vegetable i farmworker ; observation by Dr. Martinez. FINDINGS: Ultrasound: Scanning the retroareolar right breast. Mostly fibroglandular tissues with minimal fatty echotexture. No dominant solid mass, no distinct cyst, no fluid collection, and no large calcifications. No overlying skin changes. Echogenic regions of the implant capsule with acoustic shadowing indicating calcifications. IMPRESSION: Benign exam. BIRAD CATEGORY: 2 BENIGN FINDINGS. RECOMMENDATIONS: FOLLOW UP: Routine digital bilateral mammographic screening, one year interval from October 2019. Written communication explaining the IMPRESSION and follow-up, will be mailed to the patient and referring health care provider. The FINDINGS and the FOLLOW-UP plan were reviewed in person with the patient after the examination. According to the [employer], yearly mammograms are recommended starting at age 40 and continuing as long as a woman is in good health. Any breast change noted on a breast self-exam should be reported promptly to the patient's healthcare provider. Breast MRI is recommended for women with an approximately 20-25% or greater lifetime risk of breast cancer, including women with a strong family history of breast or ovarian cancer and women who have been treated for Hodgkin's disease. A negative mammographic report should not delay tissue diagnosis in patients with significant clinical history or physical findings. Extremely dense breast tissue limits the sensitivity of digital mammography. Electronically signed by: Steve Martinez MD 11/04/2019 4:47 PM CDT
== END ==
LOC: US 11:30
PROVIDERS: ATTEND Family Medicine
DX: R92.8 Other abnormal and inconclusive findings on diagnostic imaging of breast (principal)

== ENCOUNTER → 2019-11-26 | Outpatient (CLI) | payer MEDICARE, OTHER | LOC: YCFC.O 17:12 | PROVIDERS: ATTEND Family Medicine | DX: N89.8 Other specified noninflammatory disorders of vagina (principal) ==

== ENCOUNTER → 2020-02-19 | Outpatient (CLI) | payer MEDICARE, OTHER ==
--- NOTE | 2020-02-20 07:48 | MRI ---
Study: MRI of the Right Shoulder. Indication: UNSPEC. ROTATOR CUFF TEAR OR RUPTURE OF RIGHT SHOULDER Technique: Multiplanar, multi sequence MRI of the right shoulder was obtained without intravenous contrast. Comparison: None. Findings: Severe hypertrophic AC joint osteoarthritis. Type II acromion with mild lateral downsloping. Trace subacromial/subdeltoid bursal fluid. High-grade supraspinatus and infraspinatus tendinosis with low-grade attenuation and tendon elongation. Scattered interstitial fissuring throughout both tendon insertions with mild inflammation tracking along infraspinatus myotendinous junction. No full-thickness tear. Subscapularis tendinosis without tear. Mild atrophy and grade 1 fatty infiltration rotator cuff musculature. Long head biceps tendon intact. Circumferential labral truncation/degeneration, most pronounced superiorly. Mild glenohumeral joint osteoarthritis with areas of grade 2 and mild grade 3 chondrosis as well as tiny inferior osteophytes. No acute fracture. Impression: Supraspinatus and infraspinatus tendinosis and attenuation with scattered interstitial fissuring throughout both tendons. Tendon elongation present but without rupture. Subscapularis tendinosis. Mild atrophy and grade 1 fatty infiltration rotator cuff musculature. Circumferential labral truncation and degeneration. Mild glenohumeral joint osteoarthritis. Severe hypertrophic AC joint osteoarthritis. Electronically signed by: Alejandro Lewis MD 02/20/2020 7:46 AM CDT
== END ==
LOC: MRI 09:13
PROVIDERS: ATTEND Orthopaedic Surgery
DX: M75.101 Unspecified rotator cuff tear or rupture of right shoulder, not specified as traumatic (principal); M62.511 Muscle wasting and atrophy, not elsewhere classified, right shoulder; M75.81 Other shoulder lesions, right shoulder; S43.431A Superior glenoid labrum lesion of right shoulder, initial encounter; M19.011 Primary osteoarthritis, right shoulder

== ENCOUNTER → 2020-02-24 | Outpatient (CLI) | payer MEDICARE, OTHER | LOC: LAB 10:17 | PROVIDERS: ATTEND Plastic Surgery | DX: Z01.812 Encounter for preprocedural laboratory examination (principal) ==

== ENCOUNTER → 2020-04-03 | Outpatient (CLI) | payer MEDICARE, OTHER | LOC: GMAL 11:54 | PROVIDERS: ATTEND Family Medicine | DX: D51.3 Other dietary vitamin B12 deficiency anemia (principal); E55.9 Vitamin D deficiency, unspecified; I10 Essential (primary) hypertension; E78.49 Other hyperlipidemia; E34.9 Endocrine disorder, unspecified ==